=== PATIENT | female | born 1950 | race Caucasian/White ===

== ENCOUNTER 2025-09-29 06:45 | Emergency (ER) | payer OTHER ==
[~2025-09-29] VITALS: Ht 160 cm; Wt 57.6 kg
[2025-09-29 07:06] VITALS: BP 174/96
== END 2025-09-29 07:53 | disposition home or self-care (01) ==
LOC: ER 06:45
DX: M25.561 Pain in right knee (principal); G89.29 Other chronic pain
CPT/HCPCS: 99283